=== PATIENT | male | born 1980 ===

== ENCOUNTER → 2023-06-01 01:53 | Outpatient (CLI) | payer OTHER, SELFPAY ==
--- NOTE | 2023-06-01 | DI.MRI_ITS ---
Exam(s) MR UPPER JOINT RT WO EXAM: MR UPPER JOINT RT WO CLINICAL HISTORY: RT SHOULDER PAIN,M25.511,H/O FALL,ARM NUMBNESS,LTD RANGE OF MOTION. TECHNIQUE: Multiplanar multisequence MRI was performed. COMPARISON: None. FINDINGS: Exam limited by motion. BONES: There is no fracture or contusion pattern. JOINTS:The acromioclavicular joint shows mild degenerative changes. The glenohumeral joint is normal . TENDONS: Supraspinatus: Unremarkable. Infraspinatus: Unremarkable. Subscapularis: Unremarkable. Teres Minor: Unremarkable. Biceps and [place]: Unremarkable. MUSCLES: Unremarkable. GLENOID LABRUM: High signal anterior superior labrum, suspicious for small tear SOFT TISSUES: Unremarkable. OTHER: Subacromial and subdeltoid bursae shows no fluid. . Minimal amount of fluid in the subcoracoid bursa. IMPRESSION: Linear area of high signal in anterior superior labrum suspicious for labral tear. No evidence of rotator cuff tear. DATA REPOSITORY:
== END ==
PROVIDERS: Visit Provider Internal Medicine
DX: S43.431A Superior glenoid labrum lesion of right shoulder, initial encounter (principal); X58.XXXA Exposure to other specified factors, initial encounter
CPT/HCPCS: 73221

== ENCOUNTER 2023-07-08 15:47 | Outpatient (CLI) | payer OTHER, SELFPAY ==
--- NOTE | 2023-07-08 13:59 | DI.RAD_ITS ---
Exam(s) XR SHOULDER RT COMPLETE 2+V EXAM: XR SHOULDER RT COMPLETE 2+V CLINICAL HISTORY: RIGHT SHOULDER PAIN. TECHNIQUE: 2D digital imaging was performed. Two views. COMPARISON: No exams were available for comparison FINDINGS: BONES: No acute fracture is present. No bony destructive lesion is seen. JOINTS: No dislocation present. The glenohumeral joint space is maintained. No significant spurring at the AC joint. SOFT TISSUE: Normal. IMPRESSION: Unremarkable radiographs of the right shoulder. DATA REPOSITORY: RADIATION DOSE DELIVERED:
== END 2023-07-08 15:48 | disposition home or self-care (01) ==
LOC: DIORS 15:47
PROVIDERS: Visit Provider Student in an Organized Health Care Education/Training Program
DX: M25.511 Pain in right shoulder (principal)
CPT/HCPCS: 73030